=== PATIENT | female | born 1975 | race Caucasian/White ===

== ENCOUNTER 2024-12-28 20:56 | Emergency (ER) | payer BC, OTHER, SELFPAY ==
[2024-12-28 21:11] VITALS: BP 132/91
[2024-12-28 21:45] LABS: Hematocrit 41.4 % (37.0-47.0); Hemoglobin 14.5 g/dL (12.0-16.0); Mean Corp Hgb Conc. 35.0 g/dL (33.0-37.0); Mean Corpuscular Volume 91.6 fL (81.0-99.0); Nucleated Red Blood Cells % 0 %; Platelet Count 235 10^3/uL (130-400); Red Cell Dist. Width 11.6 % (11.5-14.5)
[2024-12-28 22:00] LABS: ALT (SGPT) 14 U/L (0-35); AST (SGOT) 17 U/L (14-36); Albumin 5.3 g/dl (3.5-5.0); Alkaline Phosphatase 50 U/L (38-126); Blood Urea Nitrogen 18 mg/dl (7-17); Calcium 10.1 mg/dl (8.4-10.2); Carbon Dioxide 23 mmol/L (22-30); Chloride 105 mmol/L (98-107); Glucose 127 mg/dl (70-99); Lipase 41 U/L (23-300); Potassium 5.1 mmol/L (3.5-5.1); Sodium 135 mmol/L (135-145); Total Protein 8.5 g/dl (6.3-8.2); eGFR > 60.00
[2024-12-28 22:25] VITALS: BMI 20.5
--- NOTE | 2024-12-28 22:46 | ED.GENMED ---
History of Present Illness
General
Chief Complaint: Abdominal Pain
Time Seen by Provider: 12/28/24 22:45
History of Present Illness
History of Present Illness:
49-year-old female history of ulcerative colitis presenting with lower abdominal pain. Patient states that she had routine colonoscopy earlier this morning. Patient states that after she came home, is having lower abdominal pain, nausea, chills
and had a fever taken by ear thermometer reading at 100.9. Patient states that she discussed with her GI doctor who recommended come to the emergency department for further evaluation. Patient denies cough, chest pain, shortness of breath or
urinary symptoms. Patient states that she does not take any medications for ulcerative colitis, no prednisone. Patient denies any recent rash, sore throat or ear pain. Patient is not immunocompromised.
Phy Exam
Physical Exam
Physical Exam:
General: Alert, no acute distress, well-appearing
Head: NCAT
Eyes: clear conjunctiva
Neck: supple
Cardiac: regular rate and rhythm, no murmur
Lungs: clear to auscultation bilaterally. No wheezes, rales, or rhonchi. Speaking full unlabored sentences. No respiratory distress.
Abdomen: soft, nondistended lower abdominal tenderness. No rebound or guarding.
MSK: no lower extremity edema bilaterally. No deformity
Skin: warm, dry. no rash
Neuro: Alert and oriented x3. no focal deficits
Course
Orders/Labs/Results
Orders:
Orders
12/28/24 21:16
CT Abd/pel Without Iv Or Oral Urgent
Comment:
Reason For Exam: recent colonoscopy, abd pain
12/28/24 21:35
Complete Blood Count/With Diff Urgent
Comprehensive Metabolic Panel Urgent
Lactate Level [Lactic Acid] Urgent
Lipase Urgent
12/28/24 23:16
UA Reflex to Culture [Urinalysis Reflex To Culture] Urgent
Date Specimen was Collected: 12/28/24
Time Specimen was Collected: 23:35
12/28/24 23:38
0.9% Sodium Chloride 1000 ml [Nss] 2,000 ml IV BOLUS
12/28/24 23:42
Blood Culture Q30M
LUIS MANUEL Source: Blood/Venous
Specimen Description:
12/29/24 00:02
CR Chest - 2 Views Urgent
Reason For Exam: r/o pneumonia
12/29/24 02:12
CBC/With Diff [Complete Blood Count/With Diff] Urgent
Lactic Acid Urgent
Blood Culture Q30M
LUIS MANUEL Source: Blood/Venous
Specimen Description:
Abnormal Lab Results
12/28/24 12/29/24 12/29/24
21:35 00:09 02:12
WBC 20.2 H 10^3/uL 16.5 H 10^3/uL
(4.8-10.8) (4.8-10.8)
RBC 3.97 L 10^6/uL
(4.20-5.40)
Hct 35.8 L %
(37.0-47.0)
MCH 32.1 H pg 31.5 H pg
(27.0-31.0) (27.0-31.0)
Abs Immat Gran (auto) 0.1 H 10^3/uL 0.1 H 10^3/uL
(0-0.05) (0-0.05)
Absolute Neuts (auto) 18.6 H 10^3/uL 14.7 H 10^3/uL
(1.4-6.5) (1.4-6.5)
Absolute Lymphs (auto) 0.6 L 10^3/uL
(1.2-3.4)
Absolute Monos (auto) 0.8 H 10^3/uL
(0.1-0.6)
Neutrophils % 92.3 H % 89.2 H %
(42.2-75.2) (42.2-75.2)
Lymphocytes % 3.2 L % 7.0 L %
(20.5-51.1) (20.5-51.1)
BUN 18 H mg/dl
(7-17)
Glucose 127 H mg/dl
(70-99)
Lactic Acid 2.2 H mmol/L
(0.7-2.0)
Total Bilirubin 1.4 H mg/dl
(0.2-1.3)
Total Protein 8.5 H g/dl
(6.3-8.2)
Albumin 5.3 H g/dl
(3.5-5.0)
Urine Ketones 2+ A
(Negative)
12/29/24 02:12
12/28/24 21:35
Vital Signs
Initial and Last Documented VS:
Initial Vital Signs
Temp Pulse Resp BP Pulse Ox
98.9 F 120 17 132/91 100
12/28/24 21:11 12/28/24 21:11 12/28/24 21:11 12/28/24 21:11 12/28/24 21:11
Last Documented Vital Signs
Temp Pulse Resp BP Pulse Ox
99.1 F 92 17 121/76 100
12/28/24 22:00 12/29/24 01:47 12/28/24 21:11 12/29/24 01:43 12/29/24 01:44
MDM/Problems Addressed
Differential Diagnosis Includes:
Perforation, UTI, aspiration
MDM/Problems Addressed:
Results reviewed. Significant for leukocytosis 20.2, lactic acid 2.2. LFTs within normal limits. Electrolytes, creatinine within normal limits. UA negative for UTI. Chest x-ray shows no acute consolidation or focal infiltrate. CT abdomen
pelvis shows no acute process in the abdomen or pelvis. No evidence for free air status post colonoscopy. Small right nephrolith.
Gave fluid bolus. Repeat lactic acid 0.7, repeat WBC 16.5. Discussed results with patient at bedside. Offered admission. Patient requesting discharge home. Patient states she feels well and will follow up with her PCP. Given patient has been
afebrile in ER (did not take any antipyretics prior to arrival either), vital stable, no source of infection with negative CT abdomen/pelvis/CXR/UA, not immunocompromised, no hx valve replacement, is reasonable to follow up with PCP outpatient for
repeat labs. Discussed return precautions. Patient expressed verbal understanding.
*Pulse Oximetry
SaO2: 99
Oxygen Mode of Delivery: Room air
Patient hypoxic: no
*Critical Care Note
Total Time (30-74mins, 75-104mins- exclusive of procedures): Not Applicable
ED Attending Note
-
Portions of this chart may have been created with voice recognition software.� Occasional wrong word or��sound alike� substitutions may have occurred due to the inherent limitations of voice recognition software.
Discharge Plan
Departure
Patient Disposition: Home (Routine Discharge)
Date of Disposition: 12/29/24
Time of Disposition: 03:06
Patient with high blood pressure during this ER visit?: Yes
Discharge Problem:
Abdominal pain, Leukocytosis
Instructions: Abdominal Pain
Referrals:
Antonio Feliz DO [Family Provider, Family Practice]
Activity Restrictions/Additional Instructions:
Follow-up with your primary care doctor in 1 to 2 days
Return to the emergency department for fever greater than 100.4, cough, right upper quadrant abdominal pain, urinary symptoms/worsening symptoms
Interventions
Interventions:
*Risk Screen - Suicide Last Done: 12/28/24 21:13
*General Assessment Last Done: 12/28/24 21:13
*Neglect/Abuse Screening Last Done: 12/28/24 21:13
*ED- Fall Risk Assessment Last Done: 12/28/24 22:28
*ED COVID-19 Vaccine History Last Done: 12/28/24 21:13
XL-Bdujdp-Eqzpsfzgid Assessment Last Done: 07/01/25 22:28
Discharge Date and Time
Print Language: [id number]
[2024-12-28 23:00] VITALS: BP 122/83
[2024-12-28] MEDS: NSS 2000 IV (23:45)
--- NOTE | 2024-12-28 23:56 | EDRN ---
Report received, introduced myself to patient, patient aware of the plan, she is to get fluids and then repeat labs, aware we need a urine specimen as well and to ring when she is able to get it.
[2024-12-29 00:51] LABS: Urine Character Clear (Clear)
[2024-12-29 01:43] VITALS: BP 121/76
[2024-12-29 02:32] LABS: Hematocrit 35.8 % (37.0-47.0); Hemoglobin 12.5 g/dL (12.0-16.0); Mean Corp Hgb Conc. 34.9 g/dL (33.0-37.0); Mean Corpuscular Volume 90.2 fL (81.0-99.0); Nucleated Red Blood Cells % 0 %; Platelet Count 190 10^3/uL (130-400); Red Cell Dist. Width 11.7 % (11.5-14.5)
[2024-12-29 03:14] VITALS: BP 116/72
== END 2024-12-29 03:16 | disposition home or self-care (01) ==
LOC: EMR 20:56
PROVIDERS: Student in an Organized Health Care Education/Training Program; EMERGENCY PHYSICIAN Emergency Medicine; FAMILY PHYSICIAN Family Medicine
DX: R10.30 Lower abdominal pain, unspecified (principal); D72.829 Elevated white blood cell count, unspecified
CPT/HCPCS: 99284; 71046; 74176; 80053; 81003; 83605; 83690; 85025; 87040